=== PATIENT | female | born 1985 | race Caucasian/White ===

== ENCOUNTER 2016-03-23 19:02 | Emergency (ER) | payer OTHER ==
[~2016-03-23] VITALS: Ht 157.5 cm; Wt 61.9 kg
[~2016-03-23 19:02] MED LIST: CELEXA40 MG PO; CITALOPRAM HBR40 MG PO; CLEOCIN300 MG PO; CLINDAMYCIN HC300 MG PO; FENTANYL1 EAC5 TD; FLEXERIL10 MG PO; FLEXERIL5 MG PO; HYDROCODON-ACE1 EAC7 PO; INDOCIN25 MG PO; LIDODERM 5% P1 PATCH TD; LO-DOSE ASPIRIN81 M2 PO; LYRICA50 MG PO; NAPROSYN-EC500 MG PO; NAPROXEN500 MG PO; NOHOMEMEDS; NORCO 7.5/321 TABLET PO; OXYCODONE HCL15 MG PO; OXYMORPHONE HCL20 MG PO; PEN-VEE K,VEET250 MG PO; PERCOCET 10/1 TABLET PO; PREDNISONE50 MG PO; SEROQUEL100 MG PO; SEROQUEL50 MG PO; TRAMADOL HCL50 MG; TRAMADOL HCL50 MG PO; VALIUM5 MG PO; ~No Medications
[2016-03-23 19:07] VITALS: BP 172/112
== END 2016-03-23 22:00 | disposition left against medical advice (07) ==
LOC: EME 19:02
DX: R10.9 Unspecified abdominal pain (principal); R11.2 Nausea with vomiting, unspecified; Z53.21 Procedure and treatment not carried out due to patient leaving prior to being seen by health care provider

== ENCOUNTER 2016-07-06 01:41 | Emergency (ER) | payer OTHER ==
[~2016-07-06] VITALS: Ht 157.5 cm; Wt 62.7 kg
[2016-07-06 03:44] VITALS: BP 143/99
== END 2016-07-06 03:47 | disposition home or self-care (01) ==
LOC: EME 01:41
DX: F41.0 Panic disorder [episodic paroxysmal anxiety] (principal); G89.29 Other chronic pain; F17.210 Nicotine dependence, cigarettes, uncomplicated
CPT/HCPCS: 93005

== ENCOUNTER 2016-07-11 12:59 | Emergency (ER) | payer OTHER ==
[~2016-07-11] VITALS: Ht 157.5 cm; Wt 63.3 kg
[2016-07-11] MEDS ORDERED: PEN-VEE K,VEET500 MG PO (15:39)
[2016-07-11 15:46] VITALS: BP 141/102
== END 2016-07-11 15:46 | disposition home or self-care (01) ==
LOC: EME 12:59
DX: K08.89 Other specified disorders of teeth and supporting structures (principal); F17.200 Nicotine dependence, unspecified, uncomplicated
CPT/HCPCS: 99281; 99283

== ENCOUNTER 2016-11-11 19:47 | Emergency (ER) | payer OTHER ==
[~2016-11-11] VITALS: Ht 157.5 cm; Wt 61.4 kg
[~2016-11-11 19:47] MED LIST changes: +PEN-VEE K,VEET500 MG PO
[2016-11-11 20:42] LABS: ADD MIUA? YES; BILIRUBIN NEGATIVE; BLOOD NEGATIVE; COLOR AMBER ((YELLOW)); GLUCOSE (STRIP) NEGATIVE; KETONES 5; LEUKOCYTES NEGATIVE; NITRITE NEGATIVE; PROTEIN (STRIP) 30; UROBILINOGEN 0.2 MG/DL (0.2-1.0)
[2016-11-11 20:54] LABS: BACTERIA NONE SEEN /HPF; EPITHELIAL CELLS 3+ /HPF; HYALINE CASTS 0-5 /LPF; MUCUS 4+ /LPF; RED BLOOD CELLS 0-5 /HPF (0-5); UCUL ADDED? NO; UNCLASSIFIED CASTS 0-5 /LPF; WHITE BLOOD CELLS 0-5 /HPF (0-5)
[2016-11-11 22:51] LABS: EOSINOPHIL (%) 0.8 % (0-5); EOSINOPHIL COUNT 0.1 K/uL (0-0.3); HEMATOCRIT 36.5 % (36.0-46.0); IMMATURE GRANULOCYTE (%) 0.2 % (0.0-0.7); INSTRUMENT ABS NEUTROPHIL CT 3.8 K/uL; LYMPHOCYTE COUNT 5.1 K/uL (1.0-2.8); MCH 30.3 PG (29.0-34.0); MCHC 34.5 G/DL (30.0-36.0); MCV 87.7 FL (83-99); MEAN PLAT.VOLUME 10.2 uM^3 (9.5-12.4); MONOCYTE (%) 6.5 % (3-12); MONOCYTE COUNT 0.6 K/uL (0-0.8); NEUTROPHIL (%) 39.5 % (45-76); NEUTROPHIL COUNT 3.8 K/uL (1.8-6.4); PLATELET COUNT 227 K/uL (156-360); RBC DIS.WIDTH-CV 11.5 % (11.8-14.6); RBC DIS.WIDTH-SD 37.1 % (39-53); RED BLOOD COUNT 4.16 M/uL (3.80-5.20); WHITE BLOOD COUNT 9.7 K/uL (4.1-10.2)
[2016-11-11 23:14] LABS: CHLORIDE 106 mEq/L (99-109); POTASSIUM 2.9 mEq/L (3.7-5.4); SODIUM 140 mEq/L (136-147)
[2016-11-11 23:15] LABS: GLUCOSE 92 mg/dL (70-99)
[2016-11-11 23:17] LABS: ANION GAP 8 MEQ/L (2-14)
[2016-11-11 23:19] LABS: GFR ESTIMATE (CALCULATED) > 59 mL/min/
[2016-11-11 23:20] LABS: UREA NITROGEN (BUN) 8 mg/dL (9-23)
[2016-11-11 23:27] LABS: QUANTITATIVE HCG < 4.0 MIU/ML
[2016-11-12] MEDS ORDERED: NORCO 5/3251 TABLET PO (01:29)
[2016-11-12] MEDS ORDERED: BENTYL10 MG PO (01:29)
[2016-11-12 01:49] VITALS: BP 161/101
== END 2016-11-12 01:50 | disposition home or self-care (01) ==
LOC: EME 19:47
PROVIDERS: Physician Assistant
DX: N83.201 Unspecified ovarian cyst, right side (principal); M54.9 Dorsalgia, unspecified; G89.29 Other chronic pain; Z79.891 Long term (current) use of opiate analgesic; F17.200 Nicotine dependence, unspecified, uncomplicated
CPT/HCPCS: 74176; 76856; 80048; 81003; 84702; 85025; 99281; 99284; J1885; J2270

== ENCOUNTER 2016-11-14 13:03 | Emergency (ER) | payer OTHER ==
[~2016-11-14] VITALS: Ht 157.5 cm; Wt 59.1 kg
[~2016-11-14 13:03] MED LIST changes: +BENTYL10 MG PO; +NORCO 5/3251 TABLET PO
[2016-11-14 14:22] LABS: EOSINOPHIL (%) 0.3 % (0-5); HEMATOCRIT 38.6 % (36.0-46.0); IMMATURE GRANULOCYTE (%) 0.3 % (0.0-0.7); INSTRUMENT ABS NEUTROPHIL CT 5.9 K/uL; LYMPHOCYTE COUNT 3.3 K/uL (1.0-2.8); MCH 30.5 PG (29.0-34.0); MCHC 35.8 G/DL (30.0-36.0); MCV 85.2 FL (83-99); MEAN PLAT.VOLUME 10.6 uM^3 (9.5-12.4); MONOCYTE (%) 4.4 % (3-12); MONOCYTE COUNT 0.4 K/uL (0-0.8); NEUTROPHIL (%) 60.8 % (45-76); NEUTROPHIL COUNT 5.9 K/uL (1.8-6.4); PLATELET COUNT 264 K/uL (156-360); RBC DIS.WIDTH-CV 11.2 % (11.8-14.6); RBC DIS.WIDTH-SD 34.8 % (39-53); RED BLOOD COUNT 4.53 M/uL (3.80-5.20); WHITE BLOOD COUNT 9.7 K/uL (4.1-10.2)
[2016-11-14 14:36] LABS: CHLORIDE 107 mEq/L (99-109); SODIUM 139 mEq/L (136-147)
[2016-11-14 14:38] LABS: GLUCOSE 104 mg/dL (70-99)
[2016-11-14 14:39] LABS: ANION GAP 12 MEQ/L (2-14)
[2016-11-14 14:40] LABS: TOTAL BILIRUBIN 0.6 mg/dL (0.0-1.0)
[2016-11-14 14:42] LABS: ALKALINE PHOSPHATASE 49 IU/L (3-129); GFR ESTIMATE (CALCULATED) > 59 mL/min/
[2016-11-14 14:43] LABS: UREA NITROGEN (BUN) 8 mg/dL (9-23)
[2016-11-14 14:46] LABS: POTASSIUM 3.5 mEq/L (3.7-5.4)
[2016-11-14 15:00] LABS: ADD MIUA? YES; BILIRUBIN NEGATIVE; BLOOD NEGATIVE; COLOR YELLOW ((YELLOW)); GLUCOSE (STRIP) NEGATIVE; KETONES 5; LEUKOCYTES NEGATIVE; NITRITE NEGATIVE; PROTEIN (STRIP) NEGATIVE; SPECIFIC GRAVITY 1.011 (1.000-1.030); UROBILINOGEN 0.2 MG/DL (0.2-1.0)
[2016-11-14 15:10] LABS: BACTERIA RARE /HPF; EPITHELIAL CELLS RARE /HPF; MUCUS TRACE /LPF; RED BLOOD CELLS 0-5 /HPF (0-5); UCUL ADDED? NO; WHITE BLOOD CELLS 0-5 /HPF (0-5)
[2016-11-14 15:22] LABS: INTERNAL CONTROL VALID? YES
[2016-11-14] MEDS ORDERED: LORTAB 5-325 M1 EACH PO (16:43)
[2016-11-14] MEDS ORDERED: ZOFRAN ODT4 MG PO (16:43)
[2016-11-14 17:03] VITALS: BP 165/87
== END 2016-11-14 17:04 | disposition home or self-care (01) ==
LOC: EME 13:03
PROVIDERS: Physician Assistant Medical
DX: R10.9 Unspecified abdominal pain (principal); G89.29 Other chronic pain; F17.200 Nicotine dependence, unspecified, uncomplicated; Z79.82 Long term (current) use of aspirin
CPT/HCPCS: 74177; 76856; 80053; 81003; 84703; 85025; 99281; 99284; J1885; J2270; J2405; J7040